=== PATIENT | male | born 1975 | race Caucasian/White ===

== ENCOUNTER → 2021-01-07 | Outpatient (CLI) | payer BC ==
[2021-01-07 20:05] LABS: Basophils # (A) 0.04 X 10*3/uL (0.00-0.10); Eosinophils # (A) 0.13 X 10*3/uL (0.04-0.35); Eosinophils % (A) 3.1 %; HCT 43.8 % (39.6-50.0); HGB 15.1 g/dL (13.0-17.0); Lymphocytes # (A) 1.79 X 10*3/uL (0.90-5.00); MCH 30.4 pg (27.0-32.0); MCHC 34.5 g/dL (32.0-37.0); MCV 88.1 fL (80.0-97.0); Mean Platelet Volume 10.2 fL (9.5-12.2); Monocytes # (A) 0.46 X 10*3/uL (0.20-1.00); Monocytes % (A) 11.1 %; Neutrophils # (A) 1.73 X 10*3/uL (1.80-7.70); Neutrophils % (A) 41.6 %; Platelet Count 193 X 10*3/uL (140-440); RBC 4.97 X 10*6/uL (4.40-5.60); WBC 4.16 X 10*3/uL (4.50-10.00)
[2021-01-07 21:35] LABS: Erythrocyte Sedimentation Rate 6 mm/Hr (0-15)
== END | disposition home or self-care (01) ==
LOC: LABWHC1 13:07
PROVIDERS: ATTEND Internal Medicine
DX: G89.4 Chronic pain syndrome (principal)
CPT/HCPCS: 36415; 85025; 85652; 86618

== ENCOUNTER → 2023-07-16 | Outpatient (CLI) | payer BC ==
[2023-07-16 16:08] LABS: ALT 25 U/L (10-49); AST 22 U/L (14-35); Albumin 4.5 g/dL (3.8-4.9); Albumin/Globulin Ratio 1.88 Ratio (1.60-3.17); Alkaline Phosphatase 103 U/L (41-126); BUN/Creat Ratio 17.56 Ratio (12.00-20.00); Blood Urea Nitrogen 15.8 mg/dL (9.0-27.0); Calcium 9.4 mg/dL (8.7-10.3); Carbon Dioxide 27.4 mmol/L (21.6-31.8); Chloride 103 mmol/L (96-109); Chol/HDL Ratio 4.45 Ratio; Globulin 2.4 g/dL (1.6-3.3); Glucose 100 mg/dL (70-110); LDL Cholesterol,Calculated 155.7 mg/dL (0.0-131.0); Potassium 4.4 mmol/L (3.5-5.5); Sodium 141 mmol/L (135-145); Total Bilirubin 0.8 mg/dL (0.3-1.2); Total Protein 6.9 g/dL (6.2-8.2); VLDL Calculation 17.98 mg/dL (5.00-40.00)
[2023-07-16 16:17] LABS: Basophils # (A) 0.04 X 10*3/uL (0.00-0.10); Basophils % (A) 0.8 %; Eosinophils # (A) 0.12 X 10*3/uL (0.04-0.35); Eosinophils % (A) 2.4 %; HCT 45.4 % (39.6-50.0); HGB 15.6 g/dL (13.0-17.0); Lymphocytes # (A) 1.93 X 10*3/uL (0.90-5.00); Lymphocytes % (A) 38.8 %; MCH 30.6 pg (27.0-32.0); MCHC 34.4 g/dL (32.0-37.0); Mean Platelet Volume 10.2 FL (9.5-12.2); Monocytes # (A) 0.44 X 10*3/uL (0.20-1.00); Monocytes % (A) 8.8 %; NRBC Per 100 WBC 0 X 10*3/uL (0.00-0.01); Neutrophils # (A) 2.43 X 10*3/uL (1.80-7.70); Neutrophils % (A) 48.8 %; Platelet Count 232 X 10*3/uL (140-440); RDW 11.9 % (11.5-14.5); WBC 4.98 X 10*3/uL (4.50-10.00)
== END | disposition home or self-care (01) ==
LOC: LABWHC1 08:44
PROVIDERS: ATTEND Family Medicine
DX: Z00.00 Encounter for general adult medical examination without abnormal findings (principal)
CPT/HCPCS: 36415; 80053; 80061; 84443; 85025